=== PATIENT | female | born 1970 | race Caucasian/White ===

== ENCOUNTER → 2020-04-21 12:02 | Outpatient (CLI) | payer MEDICAID ==
--- NOTE | 2020-04-22 08:55 | EC ---
PATIENT:OBED SARMIENTO DATE OF SERVICE: 04/21/20 SEX: F MEDICAL RECORD: [id number] DATE OF : 72 LOCATION:[facility] AGE OF PATIENT: 50 ADMISSION DATE: 04/21/20 REFERRING PHYSICIAN: INTERPRETING PHYSICIAN: MAYKEL ROBERTSON MD ECHOCARDIOGRAM REPORT ECHO CHARGES 4 ECHO COMPLETE Date: 04/21/20 CLINICAL DIAGNOSIS: HEART MURMUR ECHOCARDIOGRAPHIC MEASUREMENTS (adult normal given) AC root (d.<3.7cm) 2.9 cm LV Septum d (<1.2 cm> 1.2 cm Valve Excursion 1.4 cm LV Septum (systole) 1.4 cm Left Atria (s.<4.0cm> 3.4 cm LVPW d(<1.2cm) 1.4 cm RV (d.<2.3cm) 3.4 cm LVPW (sytole) 1.6 cm LV diastole(<5.6CM) 4.6 cm MV E-F(>70mm/sec) cm LV systole 3.5 cm LVOT Diameter 2.1 cm MV exc.(>10mm) 1.1 cm Est.ejection fraction (50-75%) % DOPPLER: LVIT cm/sec A 62.0 cm/sec E 42.0 cm/sec LA cm/sec RVSP 22 mmHg LVOT 113 cm/sec AOP1/2T 532 m/s Asc. Ao 136 cm/sec RVOT 71 cm/sec RA cm/sec PA 102 cm/sec AV Gradient Peak 7.44 mmHg AV Mean 3.88 mmHg AV Area 3.2 cm MV Gradient Peak 3.01 mmHg MV Mean 1.48 mmHg MV Area cm COMMENTS: Swatch Cutter: 2 ANNA BASURTO Rolloff Driver: 3 Dr. Duran TAPE# PACS Pericardial Effusion N DATE OF SERVICE: Adequate 2D, color flow imaging, spectral Doppler, and M-mode. Borderline LVH. LV internal dimension is normal. Wall motion is normal. EF is greater than or equal to 55%. Aortic valve is tricuspid. No evidence of stenosis by Doppler interrogation. There is trivial AI by color flow imaging. Left atrium is normal. Mitral valve shows no prolapse. Trace MR. Right-sided chambers are grossly normal. Trace TR. ECHOCARDIOGRAM REPORT [id number] OBED SARMIENTO NTS:[id number] Voice Confirmation ID: [id number] DOCUMENT ID: [id number] MAYKEL ROBERTSON MD at 0855 CC: [id number] DICTATION DATE: 04/21/20 1353 POTATO CHIP PROCESSING SUPERVISOR: 04/21/20 2131 DEP CLI 04/21/20 [place] [id number] [place] [id number]
== END | disposition home or self-care (01) ==
LOC: D.HCCECHO 12:02
PROVIDERS: ATTEND Internal Medicine Interventional Cardiology
DX: R06.09 Other forms of dyspnea (principal); R01.1 Cardiac murmur, unspecified